=== PATIENT | male | born 1950 | race Caucasian/White ===

== ENCOUNTER 2022-03-02 15:34 | Emergency (ER) | payer BC ==
--- NOTE | 2022-03-02 16:21 | XRAY ---
Indication: Status post fall. Audio and visual hallucinations. Blood thinner therapy. Multiple contiguous axial images obtained through the head without contrast. Comparison: None Age-appropriate global atrophy and minimal periventricular degenerative micro-ischemia. No acute intracranial hemorrhage, abnormal extra-axial fluid collection, or mass effect. Fourth ventricle is midline without hydrocephalus. Chap[place]-white matter differentiation preserved. Bony calvarium intact. Partial opacification mastoid air cells right greater than left presumed inflammatory. Remaining visualized paranasal sinuses are clear. Impression: Atrophy and degenerative micro-ischemia within normal limits for patient's age. No acute intracranial abnormalities. Partial opacification mastoid air cells presumed inflammatory.
--- NOTE | 2022-03-02 16:25 | XRAY ---
Indication: Status post fall. Audio and visual hallucinations. Blood thinner therapy. Multiple contiguous axial images obtained through the cervical spine. Sagittal and coronal reformatted images obtained. Comparison: None Osseous structures demineralized consistent with patient's age. Axial images negative for acute fracture, suspicious bony lesions, or spinal canal stenosis. Minimal/mild C4-C7 degenerative endplate spurring, mild bilateral degenerative facet arthropathy, and moderate atlantoaxial degenerative changes. Sagittal and coronal reformatted images demonstrate lordotic straightening, positional versus paraspinal spasm. C5-C7 disc space narrowing. No acute compression fracture, subluxation, or jumped facet. Normal appearing craniocervical junction. Visualized noncontrasted soft tissues demonstrates mild bilateral carotid calcifications and tiny right apical pulmonary calcified granuloma. Impression: 1. Cervical lordotic straightening, positional versus paraspinal spasm. Negative acute fracture/subluxation. 2. Osteopenia, multilevel degenerative changes, which are described disease, and right lung calcified granuloma.
--- NOTE | 2022-03-02 16:27 | XRAY ---
Indication: Status post fall. Blood thinner therapy. Comparison: None Portable chest inflated and clear. Heart not enlarged for AP portable technique. Bony thorax intact with mild osteopenia, degenerative changes, and old left clavicle shaft fracture. Impression: Nonacute chest with chronic bony findings.
[2022-03-02 16:36] LABS: Absolute Neutrophil Ct (ANC) 3.64 x10^3/uL (1.4-6.9); Basophil (Absolute #) 0.03 x10^3/uL (0-0.4); Eosinophil % 2.5 % (0.00-5.0); Eosinophil (Absolute #) 0.13 x10^3/uL (0-0.5); Hemoglobin 11.9 g/dL (12.5-18.0); Lymphocyte (Absolute #) 0.97 x10^3/uL (1.0-4.6); Lymphocytes % 18.4 % (24.0-44.0); Mean Corpuscular Hemoglobin 32.1 pg (26-32); Mean Corpuscular Hgb Concent. 33.1 g/dL (32-36); Mean Platelet Volume 10.6 fL (7.5-11.0); Monocyte (Absolute #) 0.48 x10^3/uL (0.0-1.3); Monocytes % 9.1 % (0.0-12.0); Platelet Count 165 x10^3/uL (150-450); Red Blood Count 3.71 x10^6/uL (4.1-5.6); Red Cell Distribution Width 14.8 % (11.5-14.0); White Blood Count 5.3 x10^3/uL (4.0-10.5)
--- NOTE | 2022-03-02 17:17 | ERPHSYRPT ---
- History of Present Illness Time Seen by Provider: 03/02/22 15:38 Source: patient, family Exam Limitations: clinical condition Patient Subjective Stated Complaint: Pt had went to Dr. Roel Figueredo's office and they sent him here due to pt has been having audio and visual hallucinations for the past couple of months and his body has been having involuntary jerking and he feels like his feet are and walking on jelly, his eyes make him feel like he's moving, his buttocks and his back feel like they are constantly moving and he has to sit on the side of the bed to balance himself before he can lay down or he loses his balance laying down, has audio and visual hallucinations with pets and people he knew that he thinks are really there, gets his words jumbled up and can't find the right words, quit driving voluntarly approx 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 because he knew he was not safe and couldn't figure out his directions anymore, pt hears a radio in his head 24 hours a day, Triage Nursing Assessment: Pt brought to the ER by his , hypertensive, rates overall body pain as 8/10, angry gentleman, looses temper easily, pulses normal, skin n/w/d, placed on 2L NC due to he is always on it, doesn't appear to be in any distress Physician History: 72-year-old male with history of chronic respiratory failure secondary to COPD on oxygen, hyperlipidemia, GERD, anxiety is sent in ER from primary care with worsening auditory and visual hallucination with some delusions. Patient apparently having constant auditory hallucination which she states as "24 radio with the music on which I cannot turn off". Patient also having visual hallucinations of other people and that dogs in the room during day and night's which she keeps talking per . Patient reports they are not telling him to hurt himself or hurt anyone else. Patient reports worsening of memory recently and he quit driving because it was not safe for himself and other people around. Patient does have history of stroke in with memory issues since then and now getting worse. Patient does admit drinking small amount of alcohol daily but denies using tobacco or any other substances. Denies any chest pain palpitations or shortness of breath. Has chronic abdominal pain which is not any worse than usual. He has been having frequent falls and did hit his head couple of times. Patient is very angry and does not want to stay in the hospital at all. He does not want to see a psychiatrist as according to him it is useless and has seen in the past. Timing/Duration: week(s), constant, gradual onset, worse Severity: moderate, severe Associated Symptoms: abdominal pain, No shortness of breath, No diaphoresis, No chest pain, No fever, No headaches, No syncope Allergies/Adverse Reactions: levofloxacin [From Levaquin] Allergy (Verified 03/02/22 16:16) Sulfa (Sulfonamide Antibiotics) Allergy (Verified 03/02/22 16:16) Home Medications: Albuterol Sulfate [Albuterol Sulfate Hfa] 2 puffs IH UD PRN 03/02/22 [History] Allopurinol 300 mg [Zyloprim 300 mg] 300 mg PO DAILY 03/02/22 [History] Bupropion HCl 150 mg Sr [Wellbutrin SR 150 MG] 150 mg PO DAILY 03/02/22 [History] Dapsone 25 mg PO BID 03/02/22 [History] Fluticasone/Umeclidin/Vilanter [Trelegy Ellipta 200-62.5-25] 1 each IH DAILY 03/02/22 [History] Meclizine HCl 12.5 mg PO TID PRN 03/02/22 [History] Omeprazole 40 mg PO DAILY 03/02/22 [History] Rosuvastatin Calcium 20 mg PO DAILY 03/02/22 [History] Theophylline Anhydrous [Theophylline ER] 60 mg PO DAILY 03/02/22 [History] Valsartan [Diovan] 320 mg PO DAILY 03/02/22 [History] Venlafaxine HCl [Venlafaxine HCl ER] 150 mg PO DAILY 03/02/22 [History] diazePAM [Diazepam] 5 mg PO UD PRN 03/02/22 [History] Hx Influenza Vaccination/Date Given: Yes Hx Pneumococcal Vaccination/Date Given: Yes Travel Risk - International Travel Have you traveled outside of the country in past 3 weeks: No - Coronavirus Screening Are you exhibiting any of the following symptoms?: No Close contact with a COVID-19 positive Pt in past 14-21 Days: No - Vaccine Status Have you recieved a Covid-19 vaccination: Yes Sal[employer] Keeper: Moderna - Vaccination Dates Date of 2cond Vaccination (if applicable): 2020 - Review of Systems Constitutional: No Symptoms Eyes: No Symptoms Ears, Nose, & Throat: No Symptoms Respiratory: No Symptoms Cardiac: No Symptoms Abdominal/Gastrointestinal: Abdominal Pain Genitourinary Symptoms: No Symptoms Musculoskeletal: Arthralgias Skin: No Symptoms Psychological: Anxiety, Hallucinations, No Suicidal Ideations Endocrine: No Symptoms Hematologic/Lymphatic: No Symptoms Immunological/Allergic: No Symptoms - Past Medical History Pertinent Past Medical History: Yes Neurological History: Stroke Cardiac History: High Cholesterol, Hypertension Musculoskeletal History: Fractures GI Medical History: Hepatitis Male Reproductive Disorders: Prostate Cancer Other Medical History: broken jaw, rotator cuff, broken left collar bone - Past Surgical History Past Surgical History: Yes Gastrointestinal: Colon Resection Musculoskeletal: Amputation, Joint Replacement Male Surgical History: Prostate Surgery Other Surgical History: rt knee replaced, skin cancer removed - Social History Smoking Status: Former smoker Exposure to second hand smoke: No Drug Use: none Patient Lives Alone: No - Nursing Vital Signs Nursing Vital Signs: Initial Vital Signs Temperature 97.8 F 03/02/22 15:44 Pulse Rate 93 H 03/02/22 15:44 Respiratory Rate 20 03/02/22 15:44 Blood Pressure 153/98 03/02/22 15:44 O2 Sat by Pulse Oximetry 97 03/02/22 15:44 Pain Scale Pain Intensity 0 - Physical Exam General Appearance: no apparent distress, alert Eye Exam: PERRL/EOMI Ears, Nose, Throat Exam: normal ENT inspection Neck Exam: normal inspection, non-tender, supple, full range of motion Respiratory Exam: normal breath sounds, lungs clear Cardiovascular Exam: regular rate/rhythm, normal heart sounds Gastrointestinal/Abdomen Exam: soft, normal bowel sounds, No tenderness Back Exam: normal inspection Extremity Exam: normal inspection, normal range of motion Neurologic Exam: alert, oriented x 3, developer prover upholstering II-XII nml as tested, sensation nml, No normal mood/affect, No motor deficits Skin Exam: normal color SpO2 Interpretation: normal SpO2: 98 O2 Delivery: Room Air Ordered Tests: Active Orders 24 hr Category Date Time Status IV Insertion STAT Care 03/02/22 16:14 Active CERVICAL SPINE WO CONTRAST [CT] Stat Exams 03/02/22 15:54 Completed CHEST 1 VIEW (PORTABLE) Stat Exams 03/02/22 16:14 Completed HEAD WITHOUT CONTRAST [CT] Stat Exams 03/02/22 15:38 Completed BNP [NT PRO BNP] Stat Lab 03/02/22 16:30 Completed CBC W DIFF Stat Lab 03/02/22 16:30 Completed CMP Stat Lab 03/02/22 16:30 Completed ETHYL ALCOHOL Stat Lab 03/02/22 16:30 Completed Lactic Acid Stat Lab 03/02/22 16:30 Completed MAG [MAGNESIUM] Stat Lab 03/02/22 16:30 Completed TROPONIN Q4H Lab 03/02/22 16:30 Completed TROPONIN Q4H Lab 03/02/22 20:15 Ordered TROPONIN Q4H Lab 03/03/22 00:15 Ordered TSH [TSH, 3RD Generation] Stat Lab 03/02/22 16:30 Completed UA W/RFX CULTURE Stat Lab 03/02/22 18:08 Completed Urine Triage Profile Stat Lab 03/02/22 18:08 Completed Lab/Rad Data: Laboratory Result Diagrams 03/02/22 16:30 03/02/22 16:30 Laboratory Results 03/02/22 03/02/22 03/02/22 Range/Units 18:08 18:08 16:30 WBC (4.0-10.5) x10^3/uL RBC (4.1-5.6) x10^6/uL Hgb (12.5-18.0) g/dL Hct (42-50) % MCV (78-100) fL MCH (26-32) pg MCHC (32-36) g/dL RDW (11.5-14.0) % Plt Count (150-450) x10^3/uL MPV (7.5-11.0) fL Gran % (36.0-66.0) % Immature Gran % (Auto) (0.00-0.4) % Nucleat RBC Rel Count (0.00-0.1) % Eos # (Auto) (0-0.5) x10^3/uL Immature Gran # (Auto) (0.00-0.03) x10^3u/L Absolute Lymphs (auto) (1.0-4.6) x10^3/uL Absolute Monos (auto) (0.0-1.3) x10^3/uL Absolute Nucleated RBC (0.00-0.01) x10^3u/L Lymphocytes % (24.0-44.0) % Monocytes % (0.0-12.0) % Eosinophils % (0.00-5.0) % Basophils % (0.0-0.4) % Absolute Granulocytes (1.4-6.9) x10^3/uL Basophils # (0-0.4) x10^3/uL Sodium (137-145) mmol/L Potassium (3.5-5.1) mmol/L Chloride (98-107) mmol/L Carbon Dioxide (22-30) mmol/L Anion Gap (5-15) MEQ/L BUN (9-20) mg/dL Creatinine (0.66-1.25) mg/dL Estimated GFR ML/MIN Glucose (74-106) mg/dL Lactic Acid (0.4-2.0) Calcium (8.4-10.2) mg/dL Magnesium (1.6-2.3) mg/dL Total Bilirubin (0.2-1.3) mg/dL AST (17-59) U/L ALT (0-50) U/L Alkaline Phosphatase (38-126) U/L Ammonia < 9 L (9-30) umol/L Troponin I (0.000-0.034) ng/mL NT-Pro-B Natriuret Pep (0-900) pg/mL Serum Total Protein (6.3-8.2) g/dL Albumin (3.5-5.0) g/dL TSH 3rd Generation (0.47-4.68) mIU/L Urinalys Dipstick Clnc MAIN LAB Urine Color YELLOW (YELLOW) Urine Appearance CLEAR (CLEAR) Urine pH 6.5 (5-6) Ur Specific [place] 1.020 (1.005-1.025) POC Urine Protein Conf NEGATIVE (Negative) Urine Ketones NEGATIVE (NEGATIVE) Urine Nitrite NEGATIVE (NEGATIVE) Urine Bilirubin NEGATIVE (NEGATIVE) Urine Urobilinogen 1 A (0-1) mg/dL Urine Leukocytes NEGATIVE (NEGATIVE) Urine WBC (Auto) NONE (0-5) /HPF Urine RBC (Auto) 0-2 (0-2) /HPF U Hyaline Cast (Auto) 0-2 (0-2) /LPF U Epithel Cells (Auto) RARE (FEW) /HPF Urine Bacteria (Auto) NONE (NEGATIVE) /HPF Urine RBC NEGATIVE (0-5) Papito/ul Urine Mucus (Auto) SLIGHT A (NEGATIVE) /HPF Ur Culture Indicated? NO Urine Glucose NEGATIVE (NEGATIVE) mg/dL Urine Opiates Level NEGATIVE (NEGATIVE) Ur Methadone NEGATIVE (NEGATIVE) Urine Barbiturates NEGATIVE (NEGATIVE) Ur Phencyclidine (PCP) NEGATIVE (NEGATIVE) Urine Amphetamine NEGATIVE (NEGATIVE) U Benzodiazepine Level NEGATIVE (NEGATIVE) Urine Cocaine NEGATIVE (NEGATIVE) Urine Marijuana (THC) NEGATIVE (NEGATIVE) Ethyl Alcohol (0-10) mg/dL 03/02/22 03/02/22 03/02/22 Range/Units 16:30 16:30 16:30 WBC (4.0-10.5) x10^3/uL RBC (4.1-5.6) x10^6/uL Hgb (12.5-18.0) g/dL Hct (42-50) % MCV (78-100) fL MCH (26-32) pg MCHC (32-36) g/dL RDW (11.5-14.0) % Plt Count (150-450) x10^3/uL MPV (7.5-11.0) fL Gran % (36.0-66.0) % Immature Gran % (Auto) (0.00-0.4) % Nucleat RBC Rel Count (0.00-0.1) % Eos # (Auto) (0-0.5) x10^3/uL Immature Gran # (Auto) (0.00-0.03) x10^3u/L Absolute Lymphs (auto) (1.0-4.6) x10^3/uL Absolute Monos (auto) (0.0-1.3) x10^3/uL Absolute Nucleated RBC (0.00-0.01) x10^3u/L Lymphocytes % (24.0-44.0) % Monocytes % (0.0-12.0) % Eosinophils % (0.00-5.0) % Basophils % (0.0-0.4) % Absolute Granulocytes (1.4-6.9) x10^3/uL Basophils # (0-0.4) x10^3/uL Sodium 141 (137-145) mmol/L Potassium 4.2 (3.5-5.1) mmol/L Chloride 108 H (98-107) mmol/L Carbon Dioxide 25 (22-30) mmol/L Anion Gap 11.8 (5-15) MEQ/L BUN 30 H (9-20) mg/dL Creatinine 1.47 H (0.66-1.25) mg/dL Estimated GFR 49.8 ML/MIN Glucose 87 (74-106) mg/dL Lactic Acid 1.6 (0.4-2.0) Calcium 9.0 (8.4-10.2) mg/dL Magnesium 1.9 (1.6-2.3) mg/dL Total Bilirubin 0.80 (0.2-1.3) mg/dL AST 24 (17-59) U/L ALT 26 (0-50) U/L Alkaline Phosphatase 52 (38-126) U/L Ammonia (9-30) umol/L Troponin I < 0.012 (0.000-0.034) ng/mL NT-Pro-B Natriuret Pep 54.7 (0-900) pg/mL Serum Total Protein 7.0 (6.3-8.2) g/dL Albumin 4.3 (3.5-5.0) g/dL TSH 3rd Generation 2.350 (0.47-4.68) mIU/L Urinalys Dipstick Clnc Urine Color (YELLOW) Urine Appearance (CLEAR) Urine pH (5-6) Ur Specific [place] (1.005-1.025) POC Urine Protein Conf (Negative) Urine Ketones (NEGATIVE) Urine Nitrite (NEGATIVE) Urine Bilirubin (NEGATIVE) Urine Urobilinogen (0-1) mg/dL Urine Leukocytes (NEGATIVE) Urine WBC (Auto) (0-5) /HPF Urine RBC (Auto) (0-2) /HPF U Hyaline Cast (Auto) (0-2) /LPF U Epithel Cells (Auto) (FEW) /HPF Urine Bacteria (Auto) (NEGATIVE) /HPF Urine RBC (0-5) Papito/ul Urine Mucus (Auto) (NEGATIVE) /HPF Ur Culture Indicated? Urine Glucose (NEGATIVE) mg/dL Urine Opiates Level (NEGATIVE) Ur Methadone (NEGATIVE) Urine Barbiturates (NEGATIVE) Ur Phencyclidine (PCP) (NEGATIVE) Urine Amphetamine (NEGATIVE) U Benzodiazepine Level (NEGATIVE) Urine Cocaine (NEGATIVE) Urine Marijuana (THC) (NEGATIVE) Ethyl Alcohol < 10 (0-10) mg/dL 03/02/22 Range/Units 16:30 WBC 5.3 (4.0-10.5) x10^3/uL RBC 3.71 L (4.1-5.6) x10^6/uL Hgb 11.9 L (12.5-18.0) g/dL Hct 36.0 L (42-50) % MCV 97.0 (78-100) fL MCH 32.1 H (26-32) pg MCHC 33.1 (32-36) g/dL RDW 14.8 H (11.5-14.0) % Plt Count 165 (150-450) x10^3/uL MPV 10.6 (7.5-11.0) fL Gran % 69.0 H (36.0-66.0) % Immature Gran % (Auto) 0.4 (0.00-0.4) % Nucleat RBC Rel Count 0.0 (0.00-0.1) % Eos # (Auto) 0.13 (0-0.5) x10^3/uL Immature Gran # (Auto) 0.02 (0.00-0.03) x10^3u/L Absolute Lymphs (auto) 0.97 L (1.0-4.6) x10^3/uL Absolute Monos (auto) 0.48 (0.0-1.3) x10^3/uL Absolute Nucleated RBC 0.00 (0.00-0.01) x10^3u/L Lymphocytes % 18.4 L (24.0-44.0) % Monocytes % 9.1 (0.0-12.0) % Eosinophils % 2.5 (0.00-5.0) % Basophils % 0.6 (0.0-0.4) % Absolute Granulocytes 3.64 (1.4-6.9) x10^3/uL Basophils # 0.03 (0-0.4) x10^3/uL Sodium (137-145) mmol/L Potassium (3.5-5.1) mmol/L Chloride (98-107) mmol/L Carbon Dioxide (22-30) mmol/L Anion Gap (5-15) MEQ/L BUN (9-20) mg/dL Creatinine (0.66-1.25) mg/dL Estimated GFR ML/MIN Glucose (74-106) mg/dL Lactic Acid (0.4-2.0) Calcium (8.4-10.2) mg/dL Magnesium (1.6-2.3) mg/dL Total Bilirubin (0.2-1.3) mg/dL AST (17-59) U/L ALT (0-50) U/L Alkaline Phosphatase (38-126) U/L Ammonia (9-30) umol/L Troponin I (0.000-0.034) ng/mL NT-Pro-B Natriuret Pep (0-900) pg/mL Serum Total Protein (6.3-8.2) g/dL Albumin (3.5-5.0) g/dL TSH 3rd Generation (0.47-4.68) mIU/L Urinalys Dipstick Clnc Urine Color (YELLOW) Urine Appearance (CLEAR) Urine pH (5-6) Ur Specific [place] (1.005-1.025) POC Urine Protein Conf (Negative) Urine Ketones (NEGATIVE) Urine Nitrite (NEGATIVE) Urine Bilirubin (NEGATIVE) Urine Urobilinogen (0-1) mg/dL Urine Leukocytes (NEGATIVE) Urine WBC (Auto) (0-5) /HPF Urine RBC (Auto) (0-2) /HPF U Hyaline Cast (Auto) (0-2) /LPF U Epithel Cells (Auto) (FEW) /HPF Urine Bacteria (Auto) (NEGATIVE) /HPF Urine RBC (0-5) Papito/ul Urine Mucus (Auto) (NEGATIVE) /HPF Ur Culture Indicated? Urine Glucose (NEGATIVE) mg/dL Urine Opiates Level (NEGATIVE) Ur Methadone (NEGATIVE) Urine Barbiturates (NEGATIVE) Ur Phencyclidine (PCP) (NEGATIVE) Urine Amphetamine (NEGATIVE) U Benzodiazepine Level (NEGATIVE) Urine Cocaine (NEGATIVE) Urine Marijuana (THC) (NEGATIVE) Ethyl Alcohol (0-10) mg/dL - Progress Progress: unchanged Progress Note: 03/02/22 19:04 Broad work-up was done with a negative CT head and cervical spine for any acute findings. Baseline work-up grossly unremarkable. Patient does have history of CKD and is doing follow-up with nephrology. No UTI. Patient eloped without informing anyone. - Departure Departure Disposition: AMA (Eloped) Clinical Impression: Hallucination, Memory change Condition: Stable Critical Care Time: No Referrals: ROSE FIGUEREDO [Primary Care Provider] - Follow up/PCP as directed
[2022-03-02 17:19] LABS: ALBUMIN 4.3 g/dL (3.5-5.0); ALKALINE PHOSPHATASE 52 U/L (38-126); ANION GAP 11.8 MEQ/L (5-15); BLOOD UREA NITROGEN 30 mg/dL (9-20); CHLORIDE 108 mmol/L (98-107); Carbon Dioxide 25 mmol/L (22-30); Creatinine 1 1.47 mg/dL (0.66-1.25); EST GLOMERULAR FILTRATION RATE 49.8 ML/MIN; ETHYL ALCOHOL < 10 mg/dL (0-10); Glucose 87 mg/dL (74-106); MAGNESIUM 1.9 mg/dL (1.6-2.3); NT PRO BNP 54.7 pg/mL (0-900); Potassium 4.2 mmol/L (3.5-5.1); SGOT/AST 24 U/L (17-59); SGPT/ALT 26 U/L (0-50); SODIUM 141 mmol/L (137-145)
[2022-03-02 18:13] LABS: Epithelial Cells RARE /HPF (FEW); Hyaline Casts 0-2 /LPF (0-2); Mucus SLIGHT /HPF (NEGATIVE); RBC 0-2 /HPF (0-2)
[2022-03-02 18:15] LABS: Appearance CLEAR (CLEAR); Bilirubin NEGATIVE (NEGATIVE); Dipstick done @ ? MAIN LAB; Glucose NEGATIVE (NEGATIVE); Ketones NEGATIVE (NEGATIVE); Nitrite NEGATIVE (NEGATIVE); Ph 6.5 (5-6); Protein,Urine Dip NEGATIVE (Negative); RBC NEGATIVE Ery/ul (0-5); Urobilinogen 1 mg/dL (0-1)
[2022-03-02 18:16] LABS: Urine Cultured Indicated? NO
[2022-03-02 18:19] VITALS: BP 142/102; PULSE 95
[2022-03-02 18:32] LABS: Amphetamine,Urine NEGATIVE (NEGATIVE); Barbiturate,Urine NEGATIVE (NEGATIVE); Benzodiazepine,Urine NEGATIVE (NEGATIVE); Cocaine,Urine NEGATIVE (NEGATIVE); Methadone,Urine NEGATIVE (NEGATIVE); Opiate,Urine NEGATIVE (NEGATIVE); PCP,Urine NEGATIVE (NEGATIVE); THC,Urine NEGATIVE (NEGATIVE)
[2022-03-02 19:05] VITALS: O2SAT 98
== END 2022-03-02 18:30 | disposition left against medical advice (07) ==
LOC: ED 15:34
DX: R44.1 Visual hallucinations (principal); R41.3 Other amnesia; R44.0 Auditory hallucinations; Z91.81 History of falling; E78.5 Hyperlipidemia, unspecified; I10 Essential (primary) hypertension; Z79.899 Other long term (current) drug therapy
CPT/HCPCS: 36415; 70450; 71045; 72125; 80053; 80307; 81015; 82140; 83605; 83735; 83880; 84443; 84484; 85025; 99283; G0480